=== PATIENT | female | born 2000 | race Caucasian/White ===

== ENCOUNTER 2022-04-14 14:51 | Outpatient (REF) | payer OTHER, SELFPAY ==
[2022-04-15 13:48] LABS: Chlamydia Result Negative (Negative); GC Result Negative (Negative)
== END 2022-04-14 14:52 | disposition home or self-care (01) ==
LOC: LBN 14:51
PROVIDERS: Visit Provider Obstetrics & Gynecology
DX: Z30.430 Encounter for insertion of intrauterine contraceptive device (principal)
CPT/HCPCS: 87491; 87591

== ENCOUNTER 2022-06-02 11:02 | Outpatient (CLI) | payer OTHER, SELFPAY ==
--- NOTE | 2022-06-02 10:15 | DI.RAD_ITS ---
Exam(s) XR KNEE RT 3V AP,LAT,MICK EXAM: XR KNEE RT 3V AP,LAT,MICK CLINICAL HISTORY: KNEE PAIN. TECHNIQUE: 2D digital imaging was performed. COMPARISON: No exams were available for comparison FINDINGS: 3 views There is no evidence of fracture or joint effusion. Bone density normal. No osseous lesions. No ra diopaque foreign body. IMPRESSION: No significant osseous findings. No obvious joint effusion. DATA REPOSITORY: RADIATION DOSE DELIVERED:
== END 2022-06-02 11:03 | disposition home or self-care (01) ==
LOC: DIORS 11:02
PROVIDERS: PCP Pediatrics; Referring Provider Pediatrics; Visit Provider Student in an Organized Health Care Education/Training Program
DX: M25.561 Pain in right knee (principal)
CPT/HCPCS: 73562

== ENCOUNTER 2022-06-02 13:10 | Outpatient (CLI) | payer OTHER, SELFPAY ==
--- NOTE | 2022-06-02 11:15 | DI.MRI_ITS ---
Exam(s) MR LOWER JOINT RT WO EXAM: MR LOWER JOINT RT WO CLINICAL HISTORY: ? MEDIAL MENISCUS TEAR S83.241A, M23.91 INTERNAL DERANGEMENT RT KNEE TECHNIQUE: Multiplanar multisequence MRI of the knee was performed. COMPARISON: Recent knee x-ray to reviewed. FINDINGS: EFFUSION: There is a minimal amount of increased joint fluid. There is no prominent joint effusion. Also no Greenfield cyst in the popliteal fossa. MARROW:There is no evidence of fracture, bone contusion, nor osteochondral defects.. There are no si gnificant osseous lesions. PATELLOFEMORAL COMPARTMENT: There is mild increased subcutaneous signal anterior to the upper pole of the patella. No patellar fracture evident. Quadriceps and patellar tendons are intact. There is no significant thinning of the retropatellar ca rtilage over the lateral facet. Thickness is preserved over the medial facet but with mild increased signal within the retropatellar cartilage at this level. There is no osteochondral defect. There a re no patellar retinacular tears.No intraosseous signal which would suggest recent lateral patellar d islocation. CRUCIATE LIGAMENTS: The anterior cruciate ligament is intact.The posterior cruciate ligament is intac t. MEDIAL COMPARTMENT/MEDIAL MENISCUS: There are no tears of the medial meniscus evident.The meniscal ro ot is intact. No meniscal extrusion nor intrusion. No meniscocapsular separation.. There are no chondral defects, osteochondral defects, subarticular marrow edema, nor osteophytes evid ent. MEDIAL COLLATERAL LIGAMENT: Intact LATERAL COMPARTMENT/LATERAL MENISCUS: There is no evidence of lateral meniscal tear.There are no pretty dral defects, osteochondral defects, subarticular marrow edema, nor osteophytes evident. ILIOTIBIAL BAND: Intact LATERAL COLLATERAL LIGAMENT COMPLEX: The fibular collateral ligament is intact. The biceps femoris t endon is intact.Popliteus muscle and tendon are intact. IMPRESSION: 1. There is mild subcutaneous edema anterior to the patella and very mild bone contusion signal in th e patella as well as some mild increased signal in the retropatellar cartilage over of the medial fac et. However, there is no evidence of patellar fracture nor evidence to suggest recent patellar dislo cation. There are no quadriceps or patellar ligament tears and there no osteochondral defects in the patellofemoral compartment. 2. Cruciate and collateral ligaments are intact. Iliotibial band is intact. 3. There are no obvious meniscal tears evident. No meniscal extrusion nor intrusion. 4. Minimal mild of increased joint fluid. No large joint effusion. No Greenfield cyst in the popliteal f fernando. DATA REPOSITORY:
--- OUTSIDE RECORDS SUMMARY | 2022-06-02 13:15 | XMS_ITS ---
Author Name Unknown Organization Unknown Support Name Relationship Address Phone [employer] [address] [place] [address] REYES JAMES Emergency Contact Unknown PROBLEMS Unknown Problems ALLERGIES No Information ENCOUNTERS Encounter Location Date Diagnosis [facility] [address] [place] [address] Feb, Acne vulgaris L70.0 [facility] [address] [place], [place] [id number] Jan, [facility] [address] [place], [place] [id number] Sep, [facility] [address] [place], [place] [id number] Dec, IMMUNIZATIONS No Known Immunizations SOCIAL HISTORY Never Assessed REASON FOR REFERRAL FUNCTIONAL STATUS PLAN OF CARE VITAL SIGNS MEDICATIONS Unknown Medications PROCEDURES No Known procedures RESULTS No Results REASON FOR VISIT Insurance Providers Health Insurance Type Health Plan Insurance Address Health Plan Insurance Phone Health Plan Insurance Name Health Plan Coverage Dates Member ID Patient Relationship to Subscriber Patient Address Patient Phone Patient Name Patient Date of Subscriber ID Subscriber Name Subscriber Date of Group No [employer] [place] [address] [place] [address] [employer] [place] self [employer] [id number] [id number]
== END 2022-06-02 13:30 ==
LOC: DI 13:14
PROVIDERS: PCP Pediatrics; Visit Provider Student in an Organized Health Care Education/Training Program
DX: S80.01XA Contusion of right knee, initial encounter (principal); X58.XXXA Exposure to other specified factors, initial encounter
CPT/HCPCS: 73721

== ENCOUNTER 2023-09-15 13:30 | Outpatient (REF) | payer OTHER, SELFPAY ==
--- NOTE | 2023-09-15 13:15 | PAPFT_PTH ---
PATIENT: Kelli Pruitt LOC: [facility] U#:[id number] AGE/SX: 23/F ROOM: RE09/15/[address]: Andra Villagran DO : 2000 BED: DIS: 09/15/2023 SPEC #: [id number] RECD: 09/15/23 17:32 STATUS: KISHAN REQ #: [id number] MALENA: 09/15/23 13:[address]: Andra Villagran DEPT: [facility] Cytology RECD BY: Heydi Cazares ENTERED: 09/15/23 17:33 SP TYPE: PAPFT OTHR DR: Sabrina Davis Tissues: 1 - CX/ENDOCX FOR PAP SMEARS Procedures: PAP THIN PREP/[facility] Screening HPV DNA PROBE Comments: [id number]
== END 2023-09-15 13:31 | disposition home or self-care (01) ==
LOC: LBN 13:30
PROVIDERS: PCP Pediatrics; Visit Provider Obstetrics & Gynecology
DX: Z01.419 Encounter for gynecological examination (general) (routine) without abnormal findings (principal)
CPT/HCPCS: 88142; 87624

== ENCOUNTER 2025-03-16 08:19 | Outpatient (CLI) | payer OTHER, SELFPAY ==
[2025-03-16 08:16] LABS: HCT 37.8 % (36.0-46.0); HGB 12.5 g/dL (11.2-15.7); MCH 28.9 pg (27.0-33.0); MCHC 33.1 % (32.0-36.0); MCV 87 fL (80-95); MPV 9.4 fL (8.0-11.0); Platelet Count 251 10^3/uL (130-400); RBC 4.33 10^6/uL (3.93-5.22); RDW 12.2 % (11.7-14.6); RDW-SD 39.5 fL; WBC 5.70 10^3/uL (4.4-10.8)
[2025-03-16 09:43] LABS: Iron 57 ug/dL (50-170); Total Iron Binding Capacity 268 ug/dL (250-425); Transferrin Sat 21 % (15-50)
[2025-03-16 09:44] LABS: Ferritin 25 ng/mL (7-271); Vitamin D 25 Total 22 ng/mL (30-100)
[2025-03-16 09:45] LABS: TSH (W/Ref FT4) 1.21 uIU/mL (0.55-4.78)
[2025-03-16 09:59] LABS: Cholesterol 141 mg/dL (<200); HDL Cholesterol 66 mg/dL (>40)
[2025-03-20 14:29] LABS: Coconut IgE <0.10 kU/L (<0.70); Hazelnut-Food IgE 5.82 kU/L (<0.70); Pecan-Food IgE 0.22 kU/L (<0.70); Pistachio, IgE 0.13 kU/L (<0.70); Walnut-Food IgE 0.63 kU/L (<0.70)
== END 2025-03-16 08:20 | disposition home or self-care (01) ==
LOC: LBO 08:19
PROVIDERS: PCP Pediatrics; Visit Provider Pediatrics
DX: Z00.00 Encounter for general adult medical examination without abnormal findings (principal); J30.1 Allergic rhinitis due to pollen; Z91.010 Allergy to peanuts; Z91.018 Allergy to other foods
CPT/HCPCS: 36415; 80061; 82306; 85027; 86003; 86008; 82728; 83540; 83550; 84443